=== PATIENT | male | born 1945 | race Caucasian/White ===

== ENCOUNTER 2017-02-12 08:25 | Observation (INO) | payer MEDICARE, BC ==
--- NOTE | ~2017-02-12 | OR ---
Unit #: [id number] #: [id number] Patient: SVETLANA FIGUEROA [id number] [address] [place], [place] [address] [id number] Darryn MR#: [id number] NAME: SVETLANA FIGUEROA. ROOM: 473 Date of Procedure: 02/12/2017 Admission Date: 02/12/2017 Surgeon: Zay Up M.D. : 1945 Attending Physician: Zay Up M.D. Primary Care Physician: Lisa Negrete M.D. OPERATIVE REPORT PREOPERATIVE DIAGNOSIS Left ureteral stone. POSTOPERATIVE DIAGNOSIS Left ureteral stone. PROCEDURES PERFORMED 1. Cystoscopy. 2. Left retrograde pyelogram. 3. Interpretation of left retrograde pyelogram. 4. Left 6-Turkish x 26 cm double-J stent. ANESTHESIA General. INDICATIONS FOR PROCEDURE Mr. Figueroa is a 72-year-old gentleman with a left 5 mm mid to proximal ureteral stone. The risks, benefits, and alternatives, including bleeding, infection, damage to adjacent structures, need for further surgery, need for nephrostomy tube, and all other risks were discussed with the patient. Informed consent was obtained. He wished to proceed. DESCRIPTION OF PROCEDURE The patient was taken to the operative suite and properly identified. After the application of satisfactory general anesthetic, the patient was placed in the dorsal lithotomy position. Genitalia were prepped and draped in usual sterile fashion. I introduced a rigid 21-Turkish cystoscope. The entire urethra was normal, but did have mild meatal stenosis. The prostate had mild bilobar hyperplasia. He did have a distended bladder. There were no tumors, stones, or masses. I identified the left ureteral orifice. I passed a 0.035 Sensor wire. The stone was visible in the proximal ureter. I attempted to dilate the ureter with Lubriglide, but I could not get an 8-Turkish Lubriglide up the ureter, so I knew that his ureter was too small to do ureteroscopy. I therefore passed a Pollack catheter. I shot a left retrograde pyelogram. The interpretations are as follows. Interpretation of left retrograde pyelogram: There was a single collecting system. There was mild hydroureteronephrosis down to the level of the proximal left ureteral stone. There were no other filling defects. I replaced the wire, I passed a 6-Turkish x 26 cm double-J stent, which coiled in the upper pole of the kidney and in the bladder. No string was Unit #: [id number] #: [id number] Patient: SVETLANA FIGUEROA attached. Bladder was emptied. The scope was removed. The Uro-jet was passed. PLAN The plan will be for the patient to undergo extracorporeal shock wave lithotripsy. Dictated by... Angel Mata/ana TD: 02/13/2017 03:16 JOB #: [id number] OPERATIVE REPORT Page 1 of 1 X Zay Up MD X PROCEDURE OPERATIVE NOTE
--- NOTE | ~2017-02-12 | DS ---
Unit #: [id number] #: [id number] Patient: SVETLANA FIGUEROA [id number] [address] [address] [id number] I MR#: [id number] NAME: SVETLANA FIGUEROA ROOM: 473 Age: 72 Sex: M Admission Date: 02/12/2017 : 1945 Discharge Date: 02/13/2017 Attending Physician: Zay Up M.D. Primary Care Physician: Lisa Negrete M.D. DISCHARGE SUMMARY ADMITTING DIAGNOSIS Left ureteral stone. DISCHARGE DIAGNOSIS Left ureteral stone. ADMITTING INFORMATION The patient is a pleasant 72-year-old gentleman who presented with left proximal ureteral stone. He was admitted for further management. HOSPITAL COURSE The patient was admitted. He was given pain control. He underwent left stent placement. He will be discharged home. He will get definitive stone treatment, which will probable be a lithotripsy, in 7-10 days. He is leaving town tomorrow. He is going to be discharged on Tie Siding and Keflex. He will follow up sooner with any concerns, including temperature greater than 101, inability to tolerate fluids, pain not controlled by pain medications, chest pain, shortness of breath, unilateral lower extremity swelling or any other concerns. Dictated by... Angel Mata/sunny TD: 02/15/2017 10:44 JOB #: [id number] DISCHARGE SUMMARY Page 1 of 1 X Zay Up MD X DISCHARGE SUMMARY
--- NOTE | ~2017-02-12 | CT4 ---
[facility] A Service of [facility] RADIOLOGY TEXT RESULTS PATIENT: SVETLANA FIGUEROA LOCATION: C4 473-01 : 46 UNIT #: [id number] AGE: [address]: Zay Up MD SEX: M ORDER DR: [id number] [facility] [address]. [place], [place] [address] [id number] MR#: [id number] Acc #: [id number] NAME: SVETLANA FIGUEROA. : 1945 SEX: M STUDY DATE/TIME: 02/12/2017 9:09 UNIT: [facility] ROOM: STUDY DESCRIPTION: CT Abd and Pelv Wo Cont Attending Physician: Nii Pandya M.D. Ordering Physician: Nii Pandya M.D. Primary Care Physician: Lisa Negrete M.D. MEDICAL IMAGING REPORT This report is preliminary unless electronic signature is present EXAM CT abdomen and pelvis without contrast. INDICATIONS Left flank pain for the past [address] of the abdomen and pelvis. This CT exam was performed with one or more of the following radiation dose reduction techniques: automatic exposure control, adjustment of mA and/or kV according to patient size, and iterative reconstruction. COMPARISON 12/30/2008 FINDINGS ABDOMEN WITHOUT CONTRAST: Included lung bases are clear. Hepatic steatosis. The liver, spleen, adrenal glands, pancreas, and gallbladder have an unremarkable unenhanced appearance. The bowel loops are nondilated. Appendix is normal. There are bilateral nonobstructing renal calculi, largest measuring 3-4 mm. There is a 5-mm calculus in the mid left ureter. Mild left hydronephrosis. PELVIS WITHOUT CONTRAST: No radiodense bladder calculus. No pelvic mass or fluid. No aggressive-appearing bone lesion. IMPRESSION 1. 5-mm calculus in the mid-left ureter results in mild left hydronephrosis. [facility] A Service of [facility] RADIOLOGY TEXT RESULTS PATIENT: SVETLANA FIGUEROA LOCATION: C4 473-01 : 46 UNIT #: [id number] AGE: [address]: Zay Up MD SEX: M ORDER DR: 2. Nonobstructing calculi in both kidneys. 3. Hepatic steatosis. Dictated by... Stephen Montenegro M.D. THIS IS AN ELECTRONICALLY VERIFIED REPORT Stephen Montenegro M.D. at 02/16/2017 7:14 AM AFIA/beatris TD: 02/12/2017 11:13 JOB #: [id number] MEDICAL IMAGING REPORT Page 1 of 1 COPY
--- NOTE | ~2017-02-12 | HP ---
Unit #: [id number] #: [id number] Patient: SVETLANA FIGUEROA [id number] [address] [place], [place] [address] [id number] I MR#: [id number] NAME: SVETLANA FIGUEROA. ROOM: 473 Age: 72 Sex: M Admission Date: 02/12/2017 : 1945 Attending Physician: Zay Up M.D. Primary Care Physician: Lisa Negrete M.D. HISTORY AND PHYSICAL CHIEF COMPLAINT Left ureteral stone, left flank pain. HISTORY OF PRESENT ILLNESS The patient is a 72-year-old male with a one-day history of left flank pain which he states woke him up this morning. He has had two previous kidney stones which he passed spontaneously. He has had nausea but he has not had vomiting. He states that the pain has been relieved by Dilaudid. He underwent a CT of the abdomen and pelvis which shows a left 5 mm mid ureteral stone and a left small nonobstructing stone. PAST MEDICAL HISTORY 1. Gout. 2. Hypertension. PAST SURGICAL HISTORY Tonsillectomy. SOCIAL HISTORY Negative for tobacco. Positive for alcohol. FAMILY HISTORY Positive for kidney stones and hypertension. REVIEW OF SYSTEMS A 12-point review of systems was performed and the pertinent positives are left flank pain, nausea. Negative for fever, negative for chills. PHYSICAL EXAMINATION VITAL SIGNS: Afebrile. Vital signs stable. HEENT: Normocephalic, atraumatic. Extraocular movements are intact. NECK: Supple. No lymphadenopathy. LUNGS: Patient is breathing comfortably. There is symmetric chest rise. ABDOMEN: Soft, nontender, nondistended. EXTREMITIES: No clubbing, cyanosis, or edema. Moving all extremities well. Radial pulses are 2+ bilaterally. DIAGNOSTIC STUDIES LABORATORY: Significant for a urinalysis which is nitrite negative, leukocyte esterase negative, 10-25 rbc's, 0-2 wbc's. Creatinine 0.8. White blood cell count 6.5. IMAGING: CT of the abdomen and pelvis was personally reviewed. It shows a left 5 mm mid ureteral stone and a left small nonobstructing stone. Unit #: [id number] #: [id number] Patient: SVETLANA FIGUEROA ASSESSMENT AND PLAN Left ureteral stone. Will take him to the operating room for cystoscopy, possible left ureteroscopy, laser lithotripsy and stent. Risks, benefits, and alternatives including bleeding, infection, damage to adjacent structures, need for further surgery, need for a nephrostomy tube and all other risks were discussed with patient. We will proceed tonight. Dictated by Angel Mata/jose enrique TD: 02/12/2017 20:06 JOB #: [id number] HISTORY AND PHYSICAL Page 1 of 1 X Zay Up MD X HISTORY AND PHYSICAL
[~2017-02-12 08:25] MED LIST: ASPIRIN PO; ASPIRIN81 M1 PO; DIOVAN HCT 160/1 TAB PO; DIOVAN PO; LIPITOR PO; LIPITOR20 MG PO; SINGULAIR PO; TRICOR PO; TRICOR145 MG PO; TYLOX 5/500 CAP1 CAP PO; ZYLOPRIM PO; ZYRTEC PO
[2017-02-12 09:04] LABS: URINE SOURCE CLEAN CATCH
[2017-02-12 09:10] LABS: BASOPHIL# 0.1 X10e3 (0-0.3); BASOPHIL% 1.3 % (0-2.5); EOSINOPHIL# 0.2 X10e3 (0-0.7); EOSINOPHIL% 3.4 % (0.0-7.0); HEMATOCRIT 44.4 % (38.0-50.0); HEMOGLOBIN 14.4 gm/dL (13.0-16.0); LYMPHOCYTE# 1.6 X10e3 (1.0-3.5); LYMPHOCYTE% 24.9 % (17.0-45.0); MEAN CELL VOLUME 89.9 FL (83-96); MEAN CORPUSCULAR HEMOGLOBIN 29.2 PG (28-34); MEAN CORPUSCULAR HGB CONC 32.5 g/dL (30-36); MEAN PLATELET VOLUME 10.3 FL (6.5-11.5); MONOCYTE# 0.5 X10e3 (0-1.0); MONOCYTE% 7.2 % (3.0-12.0); NEUTROPHIL# 4.1 X10e3 (1.5-7.1); NEUTROPHIL% 63.2 % (40-75); PLATELET COUNT 196 X10e3 (140-420); RED BLOOD COUNT 4.94 X10e (3.90-5.60); RED CELL DISTRIBUTION WIDTH 14.9 % (11.0-15.5); WHITE BLOOD COUNT 6.5 X10e3 (4.0-10.5)
[2017-02-12 09:12] LABS: DIFF IND NO
[2017-02-12 09:18] LABS: URINE APPEARANCE CLEAR; URINE BILIRUBIN NEG (NEG); URINE BLOOD 1+ (NEG); URINE COLOR YELLOW; URINE GLUCOSE NEG (NEG); URINE KETONE NEG (NEG); URINE LEUKOCYTE ESTERASE NEG (NEG); URINE NITRATE NEG (NEG); URINE PROTEIN NEG (NEG); URINE SPECIFIC GRAVITY 1.017 (1.003-1.035); URINE UROBILINOGEN 0.2 MG/DL (NEG)
[2017-02-12 09:21] LABS: U HYALINE CASTS AUWI 0-2 /[LPF]; URINE BACTERIA AUWI NEG (NEGATIVE); URINE SQUAMOUS EPITHELIAL CELL NONE SEEN /[HPF]; UWBCS1 AUWI 0-2 (0-5)
[2017-02-12 09:24] LABS: CULTURE INDICATED? NO
[2017-02-12 09:41] LABS: ALBUMIN SERUM 4.2 g/dL (3.5-5.0); BILIRUBIN, DIRECT 0.1 mg/dL (0.0-0.2); BILIRUBIN,INDIRECT 0.5 mg/dL (0.0-0.9); BILIRUBIN,TOTAL 0.6 mg/dL (0.2-2.0); BUN/CREATININE RATIO 18.75; CALCIUM SERUM 9.2 mg/dL (8.4-10.2); CREATININE SERUM 0.8 mg/dL (0.6-1.4); GLOM FILT RATE Estimated 89.9 mL/min (>60); POTASSIUM 3.7 mmol/L (3.5-5.1)
[2017-02-12] MEDS ORDERED: ZYLOPRIM PO (10:40)
[2017-02-12] MEDS ORDERED: AMLODIPINE BESYL5 MG PO (10:41)
[2017-02-12] MEDS ORDERED: VALSARTAN-HCTZ1 EAC4 PO (10:41)
[2017-02-12] MEDS ORDERED: LIPITOR20 MG PO (10:41)
[2017-02-12] MEDS ORDERED: SINGULAIR PO (10:41)
[2017-02-12] MEDS ORDERED: IBUPROFEN PO (10:47)
[2017-02-12] MEDS ORDERED: CENTRUM SILVER PO (10:47)
[2017-02-12] MEDS ORDERED: PATIENT'S PHARMACY (10:51)
[2017-02-12] MEDS ORDERED: NORCO 7.5-3251 EACH PO (22:15)
[2017-02-12] MEDS ORDERED: KEFLEX500 M1 PO (22:16)
== END 2017-02-13 05:51 | disposition home or self-care (01) ==
LOC: CED 08:25 → C4C 10:15 → CED 10:34 → C4C 10:34
PROVIDERS: Emergency Medicine
DX: N13.2 Hydronephrosis with renal and ureteral calculous obstruction (principal); I10 Essential (primary) hypertension; Z82.49 Family history of ischemic heart disease and other diseases of the circulatory system; K76.0 Fatty (change of) liver, not elsewhere classified
CPT/HCPCS: 36415; 74176; 80048; 80076; 81003; 83690; 85025; 96374; 96375; 96376; 99285; C2617; G0378; J0690; J1100; J1170; J1885; J2250; J2270; J2405; J2765; J3010